=== PATIENT | female | born 1975 | race Caucasian/White ===

== ENCOUNTER 2023-08-11 13:27 | Emergency (ER) | payer SELFPAY ==
[2023-08-11 14:07] LABS: BASOPHILS PERCENT AUTO 0.4 % (0.2-1.2); EOSINOPHILS PERCENT AUTO 0.5 % (0.0-4.0); HEMATOCRIT 39.1 % (33.0-47.0); HEMOGLOBIN 12.9 g/dL (12.0-16.0); IMMATURE GRAN ABSOLUTE AUTO 0.01 x10^3/uL (0.00-0.07); LYMPHOCYTES ABSOLUTE AUTO 1.8 x10^3/uL (1.0-4.8); LYMPHOCYTES PERCENT AUTO 22.8 % (25.0-50.0); MEAN CORPUSCULAR HEMOGLOBIN 30.6 pg (26.0-32.0); MEAN CORPUSCULAR VOLUME 92.7 fL (78.0-93.0); MONOCYTES ABSOLUTE AUTO 0.5 x10^3/uL (0.0-0.8); MONOCYTES PERCENT AUTO 6.2 % (2.0-11.0); NEUTROPHILS ABSOLUTE AUTO 5.4 x10^3/uL (1.8-7.7); PLATELET COUNT,PLT 261 x10^3/uL (130-400); RED BLOOD CELL COUNT 4.22 x10^6/uL (4.00-5.50); WHITE BLOOD CELL COUNT,WBC 7.7 x10^3/uL (4.0-10.0)
[2023-08-11 14:20] LABS: LACTIC ACID 1.4 mmol/L (0.4-2.0)
[2023-08-11 14:26] LABS: A/G RATIO 1.13; ALANINE AMINOTRANSFERASE,ALT 23 U/L (14-59); ALBUMIN 3.5 g/dL (3.4-5.0); ALKALINE PHOSPHATASE 44 U/L (46-116); ASPARTATE AMNIOTRANSFERASE,AST 11 U/L (15-37); BILIRUBIN TOTAL 0.2 mg/dL (0.2-1.0); BLOOD UREA NITROGEN,BUN 13 mg/dL (7-18); CALCIUM 8.8 mg/dL (8.5-10.1); CARBON DIOXIDE,CO2 31 mmol/L (21-32); CHLORIDE,CL 104 mmol/L (98-107); CREATININE 0.7 mg/dL (0.55-1.02); GLUCOSE RANDOM 110 mg/dL (70-99); POTASSIUM,K 3.9 mmol/L (3.5-5.1); PROTEIN TOTAL,TP 6.6 g/dL (6.4-8.2); SODIUM,NA 142 mmol/L (136-145)
[2023-08-11 14:30] LABS: BACTERIA,URINE FEW /HPF (NOT SEEN); MUCUS,URINE RARE /LPF (NOT SEEN); RBC,URINE 0-5 /HPF (NOT SEEN); SQUAMOUS EPITHELIAL CELLS,UR FEW /HPF (NOT SEEN); WBC,URINE 20-30 /HPF (NOT SEEN)
[2023-08-11 14:32] LABS: ANION GAP 10.9 mmol/L (5-15); ESTIMATED GFR 108 mL/min (>=60)
== END 2023-08-11 14:49 | disposition home or self-care (01) ==
LOC: VM.ED 13:27
DX: N39.0 Urinary tract infection, site not specified (principal); Z88.8 Allergy status to other drugs, medicaments and biological substances
CPT/HCPCS: 36415; 80053; 81001; 81025; 83605; 85025; 87086; 87088; 87186; 99284